=== PATIENT | male | born 1940 | race African-American/Black ===

== ENCOUNTER 2024-08-14 10:58 | Emergency (ER) | payer MEDICARE, MEDICAID ==
[~2024-08-14] VITALS: Ht 175.3 cm; Wt 85.0 kg
[2024-08-14 11:01] VITALS: TEMP 36.9; O2SAT 99
[2024-08-14] MEDS: ACETAMINOPHEN WITH CODEINE 300/30MG TABLET PO ONE (11:35)
[2024-08-14] MEDS ORDERED: TOPUD PO (13:23)
[2024-08-14 14:01] VITALS: BP 116/57; PULSE 62; RESP 17; O2SAT 99
== END 2024-08-14 14:20 | disposition home or self-care (01) ==
LOC: ER 10:58
DX: S42.211A Unspecified displaced fracture of surgical neck of right humerus, initial encounter for closed fracture (principal); I10 Essential (primary) hypertension; X58.XXXA Exposure to other specified factors, initial encounter; Y93.01 Activity, walking, marching and hiking; Y92.89 Other specified places as the place of occurrence of the external cause; Y99.8 Other external cause status
CPT/HCPCS: 73030; 99284